=== PATIENT | male | born 1955 | race Caucasian/White ===

== ENCOUNTER 2019-04-30 18:34 | Emergency (ER) | payer OTHER ==
[~2019-04-30] VITALS: Ht 177.8 cm; Wt 99.8 kg
--- OUTSIDE RECORDS SUMMARY | ~2019-04-30 | XMS | Encounter Summary ---
Demographics + + + | Address | [address] | | | [place] [address] | + + + | Home Phone | | + + + | Preferred Language | Unknown | + + + | Marital Status | | + + + | Anabaptist Affiliation | Unknown | + + + | Race | Unknown | + + + | Ethnic Group | Unknown | + + + Author + + + | Author | [facility] | | | and [place] | + + + | Organization | [facility] | | | and [place] | + + + | Address | Unknown | + + + | Phone | Unavailable | + + + Support + + +---------+ + | Name | Relationship | Address | Phone | + + +---------+ + | Sarah Curtis | ECON | Unknown | | + + +---------+ + Care Team Providers + +------+ + | Care Hvac R Tech Name | Role | Phone | + +------+ + | No, Physician | PCP | Unavailable | + +------+ + Reason for Visit + + + | Reason | Comments | + + + | Left Without Being | | | Seen | | + + + Encounter Details +--------+ + + + + | Date | Type | Department | Care Team | Description | +--------+ + + + + | 04/16/ | Clinical | [facility] | Jayesh Raygoza | Patient left without | | 2019 | Support | [facility]ARE [address] | B, DO [address] | being seen (Primary | | | | [place], [place] | [place] | Dx) | | | | [address] | [address] | | | | | [phone] | | | +--------+ + + + + Social History + + + +--------+------+ | Tobacco Use | Types | Packs/Day | Years | Date | | | | | Used | | + + + +--------+------+ | Current Every Day | Cigarettes | 0.5 | | | | Smoker | | | | | + + + +--------+------+ + + +---------+ + | Alcohol Use | Drinks/We | oz/Week | Comments | | | ek | | | + + +---------+ + | Never | | | | + + +---------+ + + + + + | Alcohol Habits | Answer | Date Recorded | + + + + | How often do you have a drink containing | Never | 04/16/2019 | | alcohol? | | | + + + + | How many drinks containing alcohol do you | Not asked | | | have on a typical day when you are | | | | drinking? | | | + + + + | How often do you have six or more drinks on | Not asked | | | one occasion? | | | + + + + + + + | Sex Assigned at | Date Recorded | | | | + + + | Not on file | | + + + + + + + | Job Start Date | Occupation | Industry | + + + + | Not on file | Not on file | Not on file | + + + + + + + + | Travel History | Travel Start | Travel End | + + + + + + | No recent travel history available. 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 Emilia Beverly documen celestino in this encounter Plan of Treatment Not on filedocumented as of this encounter Visit Diagnoses + + | Diagnosis | + + | Patient left without being seen - Primary Surgical or other procedure not carried out | | because of patient's decision | + + documented in this encounter"
--- OUTSIDE RECORDS SUMMARY | ~2019-04-30 | XMS | Encounter Summary ---
Demographics + + + | Address | [address] | | | [place] [address] | + + + | Home Phone | | + + + | Preferred Language | Unknown | + + + | Marital Status | | + + + | Confucianist Affiliation | Unknown | + + + | Race | Unknown | + + + | Ethnic Group | Unknown | + + + Author + + + | Author | [facility] | | | and [place] | + + + | Organization | [facility] | | | and [place] | [...] Team Providers + +------+ + | Care Canal Equipment Maintenance Supervisor Name | Role | Phone | + +------+ + | No, Physician | PCP | Unavailable | + +------+ + Reason for Referral Evaluate & Treat (Routine) + + + + + + + | Status | Reason | Specialty | Diagnoses / | Referred By | Referred To | | | | | Procedures | Contact | Contact | + + + + + + + | Pending | Specialty | Surgery | Diagnoses | Tommie, | Dutch, | | Review | Services | | Biliary | Dyllan Mcclellan MD | Nickolas Winters MD | | | Required | | colic | [address] | | | | | Calculus of | [address] | [place] | | | | | gallbladder | [place], | [place] | | | | | without | [place] [address] | [address] | | | | | cholecystiti | Phone: | Phone: | | | | | s without | [phone] | [phone] | | | | | obstruction | Fax: | Fax: | | | | | Procedures | [phone] | [phone] | | | | | 04/18>PEND | | | | | | | [place] | | | + + + + + + + Reason for Visit + + + | Reason | Comments | + + + | Abdominal Pain | | + + + Encounter Details +--------+ + + + + | Date | Type | Department | Care Team | Description | +--------+ + + + + | 04/16/ | Emergency | [facility] | Dyllan Reilly MD | Biliary colic | | 2019 | | [facility] | [address] | (Primary Dx); | | | | CENTER [address] | [place], [place] | Calculus of | | | | [place], [place] | [address] | gallbladder without | | | | [address] | | cholecystitis | | | | [phone] | | without obstruction | +--------+ + + + + Social [...] + + documented as of this encounter Last Filed Vital Signs + + + + | Vital Sign | Reading | Time Taken | + + + + | Blood Pressure | 121/79 | 04/16/20191339 PDT | + + + + | Pulse | 82 | 04/16/20191339 PDT | + + + + | Temperature | 37.1 C (98.7 F) | 04/16/20191339 PDT | + + + + | Respiratory Rate | 16 | 04/16/20191339 PDT | + + + + | Oxygen Saturation | 95% | 04/16/20191339 PDT | + + + + | Inhaled Oxygen | - | - | | Concentration | | | + + + + | Weight | 98.2 kg (216 lb 7.9 | 04/16/20191339 PDT | | | oz) | | + + + + | Height | 177.8 cm (5' 10") | 04/16/20190 PDT | + + + + | Body Mass Index | 31.06 | 04/16/2019 1340 PDT | + + + + documented in this encounter Discharge Instructions Instructions Dyllan Reilly MD - 04/16/2019Mamohamud use pain and nausea medication as needed Rest and plenty of fluids Return for uncontrolled pain, high fever, uncontrolled vomiting, other new complaints documented in this encounter Medications at Time of Discharge + + + +---------+ + + | Medication | Sig | Dispensed | Refills | Start | End Date | | | | | | Date | | + + + +---------+ + + | ATORVASTATIN | Take by mouth. | | 0 | | | | CALCIUM PO | | | | | | + + + +---------+ + + | | Take 1-2 tablets by | 12 | 0 | 04/16/20 | | | HYDROcodone-acetamin | mouth every 6 hours | tablet | | 19 | | | ophen (NORCO) 5-325 | as needed for Pain. | | | | | | mg per tablet | | | | | | + + + +---------+ + + | Levothyroxine | Take by mouth. | | 0 | | | | Sodium (SYNTHROID | | | | | | | PO) | | | | | | + + + +---------+ + + | METOPROLOL | Take by mouth. | | 0 | | | | TARTRATE PO | | | | | | + + + +---------+ + + | ondansetron | Take 1 tablet by | 10 | 0 | 04/16/20 | | | (ZOFRAN ODT) 4 mg | mouth every 8 hours | tablet | | 19 | | | disintegrating | as needed for | | | | | | tablet | Nausea. | | | | | + + + +---------+ + + | sertraline | Take 100 mg by mouth | | 0 | | | | (ZOLOFT) 100 mg | Daily. | | | | | | tablet | | | | | | + + + +---------+ + + documented as of this encounter Plan of Treatment + +--------+ + + | Name | Priori | Associated Diagnoses | Order Schedule | | | ty | | | + +--------+ + + | [facility] - | Routin | Biliary colic | Ordered: 04/16/2019 | | [place] | e | Calculus of | | | | | gallbladder without | | | | | cholecystitis | | | | | without obstruction | | + +--------+ + + documented as of this encounter Procedures + +--------+ + + + | Procedure Name | Priori | Date/Time | Associated Diagnosis | Comments | | | ty | | | | + +--------+ + + + | US ABDOMEN LIMITED | STAT | 04/16/2019 | | Results for this | | | | 16:27 PDT | | procedure are in the | | | | | | results section. | + +--------+ + + + | CBC W/AUTO | STAT | 04/16/2019 | | Results for this | | DIFFERENTIAL | | 14:15 PDT | | procedure are in the | | | | | | results section. | + +--------+ + + + | EXTRA LAVENDER TOP | Routin | 04/16/2019 | | Results for this | | TUBE | e | 14:15 PDT | | procedure are in the | | | | | | results section. | + +--------+ + + + | EXTRA GREEN TOP TUBE | Routin | 04/16/2019 | | Results for this | | | e | 14:15 PDT | | procedure are in the | | | | | | results section. | + +--------+ + + + | EXTRA BLUE TOP TUBE | Routin | 04/16/2019 | | Results for this | | | e | 14:15 PDT | | procedure are in the | | | | | | results section. | + +--------+ + + + | LIPASE | STAT | 04/16/2019 | | Results for this | | | | 14:15 PDT | | procedure are in the | | | | | | results section. | + +--------+ + + + | COMPREHENSIVE | STAT | 04/16/2019 | | Results for this | | METABOLIC PANEL | | 14:15 PDT | | procedure are in the | | | | | | results section. | + +--------+ + + + documented in this encounter Results US Abdomen Limited (04/16/2019 16:27 PDT) + + | Specimen | + + | | + + + + + | Narrative | Performed At | + + + | US ABDOMEN LIMITED 04/16/2019 4:00 PM HISTORY: Gallbladder. | [facility] | | COMPARISON: None. PROTOCOL: Allen scale and Doppler images of the | | | abdomen. FINDINGS: Gallbladder: Multiple calcified gallstones are | | | seen in the dependent lumen and neck of the gallbladder. There is | | | diffuse gallbladder wall thickening and pericholecystic fluid. | | | Gallbladder wall measures up to 6.5 mm in thickness. The common bile | | | duct measures 5 mm, normal. Liver: Hepatomegaly with diffusely | | | increased hepatic echogenicity compatible with steatosis. No | | | suspicious hepatic mass identified. Pancreas: Visualized | | | parenchyma is within normal limits. The pancreatic duct is normal. | | | Right kidney: The visualized portions appear normal. 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 Venous structures: There is | | | normal blood flow in the IVC, portal veins, and hepatic veins. | | | IMPRESSION - Findings are suspicious for cholecystitis. 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 Further characterization with | | | multiphase renal protocol MRI it is recommended or at least | | | follow-up/surveillance repeat ultrasound to confirm stability. | | | Dictated and Signed by: Que Art MD Electronically signed: | | | 04/16/2019 7:06 PM | | + + + + + | Procedure Note | + + | Sanju, Rad Results In - 04/16/2019 1909 PDT US ABDOMEN LIMITED 04/16/2019 4:00 PM | | | | HISTORY: Gallbladder. | | | | COMPARISON: None. | | | | PROTOCOL: Allen scale and Doppler images of the abdomen. | | | | FINDINGS: | | Gallbladder: Multiple calcified gallstones are seen in the dependent lumen and | | neck of the gallbladder. There is diffuse gallbladder wall thickening and | | pericholecystic fluid. Gallbladder wall measures up to 6.5 mm in thickness. | | The common bile duct measures 5 mm, normal. | | | | Liver: Hepatomegaly with diffusely increased hepatic echogenicity compatible | | with steatosis. No suspicious hepatic mass identified. | | | | Pancreas: Visualized parenchyma is within normal limits. The pancreatic duct is | | normal. | | | | Right kidney: The visualized portions appear normal. Echogenic 1.1 cm mass is | | noted in the midportion of the right kidney, this most likely represents a | | benign renal angiomyolipoma without etiology is unable to be in entirely | | excluded. | | | | Venous structures: There is normal blood flow in the IVC, portal veins, and | | hepatic veins. | | | | IMPRESSION - | | Findings are suspicious for cholecystitis. 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 Further characterization with multiphase renal protocol | | MRI it is recommended or at least follow-up/surveillance repeat ultrasound to | | confirm stability. | | | | Dictated and Signed by: Que Art MD | | Electronically signed: 04/16/2019 7:06 PM | + + + +---------+ + + | Performing | Address | City/State/Zipcode | Phone Number | | Organization | | | | + +---------+ + + | [facility] | | | | + +---------+ + + Extra Green Top Tube (04/16/2019 14:15 PDT) + +-------+ + + + | Component | Value | Ref Range | Performed | Pathologist | | | | | At | Signature | + +-------+ + + + | Extra Green | Done | | [facility] | | | Top Tube | | | [facility] | | | | | | [facility] | | | | | | [facility] - | | | | | | LABORATORY | | + +-------+ + + + + + | Specimen | + + | Blood | + + + + + + + | Performing | Address | City/State/Zipcode | Phone Number | | Organization | | | | + + + + + | [facility] | [address] | [place] | [phone] | | [facility] | | [address] | | | - LABORATORY | | | | + + + + + Extra Blue Top Tube (04/16/2019 14:15 PDT) + +-------+ + + + | Component | Value | Ref Range | Performed | Pathologist | | | | | At | Signature | + +-------+ + + + | Extra Blue | Done | | [facility] | | | Top Tube | | | [facility] | | | | | | [facility] | | | | | | CENTER - | | | | | | LABORATORY | | + +-------+ + + + + + | Specimen | + + | Blood | + + + + + + + | Performing | Address | City/State/Zipcode | Phone Number | | Organization | | | | + + + + + | [facility] | [address] | [place] | [phone] | | [facility] | | [address] | | | - LABORATORY | | | | + + + + + Extra Lavender Top Tube (04/16/2019 14:15 PDT) + +-------+ + + + | Component | Value | Ref Range | Performed | Pathologist | | | | | At | Signature | + +-------+ + + + | Extra | Done | | [facility] | | | Lavender | | | [facility] | | | Top Tube | | | MEDICAL | | | | | | CENTER - | | | | | | LABORATORY | | + +-------+ + + + + + | Specimen | + + | Blood | + + + + + + + | Performing | Address | City/State/Zipcode | Phone Number | | Organization | | | | + + + + + | [facility] | [address] | [place] | [phone] | | [facility] | | [address] | | | - LABORATORY | | | | + + + + + Lipase (04/16/2019 14:15 PDT) + +-------+ + + + | Component | Value | Ref Range | Performed | Pathologist | | | | | At | Signature | + +-------+ + + + | Lipase | 35 | 12 - 53 U/L | [facility] | | | | | | [facility] | | | | | | MEDICAL | | | | | | CENTER - | | | | | | LABORATORY | | + +-------+ + + + + + | Specimen | + + | Blood | + + + + + + + | Performing | Address | City/State/Zipcode | Phone Number | | Organization | | | | + + + + + | [facility] | [address] | [place] | [phone] | | [facility] | | [address] | | | - LABORATORY | | | | + + + + + Comprehensive Metabolic Panel (04/16/2019 14:15 PDT) + + + + + + | Component | Value | Ref Range | Performed | Pathologist | | | | | At | Signature | + + + + + + | Na | 137 | 136 - 145 | [facility] | | | | | mmol/L | [facility] | | | | | | MEDICAL | | | | | | CENTER - | | | | | | LABORATORY | | + + + + + + | K | 3.6 | 3.4 - 5.1 | [facility] | | | | | mmol/L | [facility] | | | | | | MEDICAL | | | | | | CENTER - | | | | | | LABORATORY | | + + + + + + | Cl | 106 | 98 - 107 mmol/L | [facility] | | | | | | [facility] | | | | | | MEDICAL | | | | | | CENTER - | | | | | | LABORATORY | | + + + + + + | CO2 | 26 | 20 - 31 mmol/L | [facility] | | | | | | [facility] | | | | | | MEDICAL | | | | | | CENTER - | | | | | | LABORATORY | | + + + + + + | Anion Gap | 5 | 3 - 16 mmol/L | [facility] | | | | | | [facility] | | | | | | MEDICAL | | | | | | CENTER - | | | | | | LABORATORY | | + + + + + + | Glucose | 104 | 60 - 106 mg/dL | [facility] | | | | | | [facility] | | [facility] | | | MEDICAL | | | | | | CENTER - | | | | | | LABORATORY | | + + + + + + | BUN | 10 | 9 - 23 mg/dL | [facility] | | | | | | [facility] | | | | | | MEDICAL | | | | | | CENTER - | | | | | | LABORATORY | | + + + + + + | Creatinine | 0.81 | 0.70 - 1.30 | [facility] | | | | | mg/dL | [facility] | | | | | | MEDICAL | | | | | | CENTER - | | | | | | LABORATORY | | + + + + + + | eGFR if not | >60Comment: GLOMERULAR | >=60 | [facility] | | | | FILTRATION | mL/min/1.73m2 | [facility] | | | VENEZUELAN | RATE,ESTIMATED mL/min | | MEDICAL | | | | /1.44v3Ywze than 60 | | CENTER - | | | | Chronic kidney | | LABORATORY | | | | disease,if found over a | | | | | | 3-month period.Less than | | | | | | 15 Kidney | | | | | | failureFor | | | | | | Americans,multiply the | | | | | | calculated GFR by 1.21. | | | | | | | | | | + + + + + + | Ca | 9.3 | 8.7 - 10.4 | [facility] | | | | | mg/dL | [facility] | | | | | | MEDICAL | | | | | | CENTER - | | | | | | LABORATORY | | + + + + + + | Albumin | 4.6 | 3.2 - 4.8 g/dL | [facility] | | | | | | [facility] | | | | | | MEDICAL | | | | | | CENTER - | | | | | | LABORATORY | | + + + + + + | Bilirubin | 1.2 | 0.3 - 1.2 mg/dL | [facility] | | | Total | | | [facility] | | | | | | MEDICAL | | | | | | CENTER - | | | | | | LABORATORY | | + + + + + + | Total | 7.8 | 5.7 - 8.2 g/dL | [facility] | | | Protein | | | [facility] | | | | | | MEDICAL | | | | | | CENTER - | | | | | | LABORATORY | | + + + + + + | AST | 19 | 0 - 34 U/L | [facility] | | | | | | [facility] | | | | | | MEDICAL | | | | | | CENTER - | | | | | | LABORATORY | | + + + + + + | ALT | 22 | 10 - 49 U/L | [facility] | | | | | | [facility] | | | | | | MEDICAL | | | | | | CENTER - | | | | | | LABORATORY | | + + + + + + | Alkaline | 69 | 46 - 116 U/L | [facility] | | | Phosphatase | | | [facility] | | | | | | MEDICAL | | | | | | CENTER - | | | | | | LABORATORY | | + + + + + + | Globulin | 3.2 | 2.1 - 3.8 g/dL | [facility] | | | | | | [facility] | | [facility] | | | MEDICAL | | | | | | CENTER - | | | | | | LABORATORY | | + + + + + + | Albumin/Adela | 1.4 | 0.8 - 1.9 | [facility] | | | bulin Ratio | | | [facility] | | | | | | MEDICAL | | | | | | CENTER - | | | | | | LABORATORY | | + + + + + + | BUN/Creatin | 12.3 | | [facility] | | | ine Ratio | | | [facility] | | | | | | MEDICAL | | | | | | CENTER - | | | | | | LABORATORY | | + + + + + + + + | Specimen | + + | Blood | + + + + + + + | Performing | Address | City/State/Zipcode | Phone Number | | Organization | | | | + + + + + | [facility] | [address] | [place] | [phone] | | [facility] | | [address] | | | - LABORATORY | | | | + + + + + CBC w/ Auto Differential (04/16/2019 14:15 PDT) + +-------+ + + + | Component | Value | Ref Range | Performed | Pathologist | | | | | At | Signature | + +-------+ + + + | WBC | 9.2 | 4.0 - 11.0 K/uL | [facility] | | | | | | [facility] | | | | | | MEDICAL | | | | | | CENTER - | | | | | | LABORATORY | | + +-------+ + + + | RBC | 4.80 | 4.30 - 5.70 | [facility] | | | | | M/uL | [facility] | | | | | | MEDICAL | | | | | | CENTER - | | | | | | LABORATORY | | + +-------+ + + + | Hemoglobin | 14.3 | 13.5 - 18.0 | [facility] | | | | | g/dL | [facility] | | | | | | MEDICAL | | | | | | CENTER - | | | | | | LABORATORY | | + +-------+ + + + | Hematocrit | 42.9 | 40.0 - 51.0 % | [facility] | | | | | | [facility] | | | | | | MEDICAL | | | | | | CENTER - | | | | | | LABORATORY | | + +-------+ + + + | MCV | 89.4 | 83.0 - 101.0 fL | [facility] | | | | | | [facility] | | | | | | MEDICAL | | | | | | CENTER - | | | | | | LABORATORY | | + +-------+ + + + | MCH | 29.8 | 28.0 - 35.0 pg | [facility] | | | | | | [facility] | | | | | | MEDICAL | | | | | | CENTER - | | | | | | LABORATORY | | + +-------+ + + + | MCHC | 33.3 | 32.0 - 36.0 | [facility] | | | | | g/dL | [facility] | | | | | | MEDICAL | | | | | | CENTER - | | | | | | LABORATORY | | + +-------+ + + + | RDW-CV | 13.7 | <15.0 % | [facility] | | | | | | [facility] | | | | | | MEDICAL | | | | | | CENTER - | | | | | | LABORATORY | | + +-------+ + + + | RDW-SD | 44.6 | 35.1 - 46.3 fL | [facility] | | | | | | [facility] | | | | | | MEDICAL | | | | | | CENTER - | | | | | | LABORATORY | | + +-------+ + + + | Platelet | 246 | 140 - 440 K/uL | [facility] | | | Count | | | [facility] | | | | | | MEDICAL | | | | | | CENTER - | | | | | | LABORATORY | | + +-------+ + + + | MPV | 10.3 | 6.5 - 12.4 fL | [facility] | | | | | | [facility] | | | | | | MEDICAL | | | | | | CENTER - | | | | | | LABORATORY | | + +-------+ + + + | % | 61.6 | 45.0 - 82.0 % | [facility] | | | Neutrophils | | | [facility] | | | | | | MEDICAL | | | | | | CENTER - | | | | | | LABORATORY | | + +-------+ + + + | % | 27.1 | 20.0 - 45.0 % | [facility] | | | Lymphocytes | | | [facility] | | | | | | MEDICAL | | | | | | CENTER - | | | | | | LABORATORY | | + +-------+ + + + | % Monocytes | 9.5 | 4.0 - 12.0 % | [facility] | | | | | | [facility] | | | | | | MEDICAL | | | | | | CENTER - | | | | | | LABORATORY | | + +-------+ + + + | % | 1.0 | 0.0 - 5.0 % | [facility] | | | Eosinophils | | | [facility] | | | | | | MEDICAL | | | | | | CENTER - | | | | | | LABORATORY | | + +-------+ + + + | % Basophils | 0.7 | 0.0 - 1.0 % | [facility] | | | | | | [facility] | | | | | | MEDICAL | | | | | | CENTER - | | | | | | LABORATORY | | + +-------+ + + + | % Immature | 0.1 | 0.0 - 0.4 % | [facility] | | | Granulocyte | | | [facility] | | | s | | | MEDICAL | | | | | | CENTER - | | | | | | LABORATORY | | + +-------+ + + + | Absolute | 5.66 | 1.80 - 8.50 | [facility] | | | Neutrophils | | K/uL | [facility] | [facility] | [facility] | | | | | | C[facility] - | | | | | | LABORATORY | | + +-------+ + + + | Absolute | 2.49 | 0.60 - 3.20 | [facility] | | | Lymphocytes | | K/uL | [facility] | | | | | | MEDICAL | | | | | | CENTER - | | | | | | LABORATORY | | + +-------+ + + + | Absolute | 0.87 | 0.00 - 1.00 | [facility] | | | Monocytes | | K/uL | [facility] | | | | | | MEDICAL | | | | | | CENTER - | | | | | | LABORATORY | | + +-------+ + + + | Absolute | 0.09 | 0.00 - 0.40 | [facility] | | | Eosinophils | | K/uL | [facility] | | | | | | MEDICAL | | | | | | CENTER - | | | | | | LABORATORY | | + +-------+ + + + | Absolute | 0.06 | 0.00 - 0.10 | [facility] | | | Basophils | | K/uL | [facility] | | | | | | MEDICAL | | | | | | CENTER - | | | | | | LABORATORY | | + +-------+ + + + | Absolute | 0.01 | 0.00 - 0.03 | [facility] | | | Immature | | K/uL | [facility] | | | Granulocyte | | | MEDICAL | | | s | | | CENTER - | | | | | | LABORATORY | | + +-------+ + + + | % nRBC | 0 | 0 - 2 per 100 | [facility] | | | | | WBCs | [facility] | | | | | | MEDICAL | | | | | | CENTER - | | | | | | LABORATORY | | + +-------+ + + + | Absolute | 0.00 | 0.00 - 0.01 | [facility] | | | nRBC | | K/uL | [facility] | | | | | | MEDICAL | | | | | | CENTER - | | | | | | LABORATORY | | + +-------+ + + + + + | Specimen | + + | Blood | + + + + + + + | Performing | Address | City/State/Zipcode | Phone Number | | Organization | | | | + + + + + | [facility] | [address] | [place] | [phone] | | [facility] | | [address] | | | - LABORATORY | | | | + + + + + documented in this encounter Visit Diagnoses + + | Diagnosis | + + | Biliary colic - Primary Calculus of gallbladder without mention of cholecystitis or | | obstruction | + + | Calculus of gallbladder without cholecystitis without obstruction Calculus of | | gallbladder without mention of cholecystitis or obstruction | + + documented in this encounter
--- OUTSIDE RECORDS SUMMARY | ~2019-04-30 | XMS | Clinical Summary ---
Demographics + + + | Address | [address] | | | [place] [address] | + + + | Home Phone | | + + + | Preferred Language | Unknown | + + + | Marital Status | | + + + | Orthodoxy Affiliation | Unknown | + + + | Race | Unknown | + + + | Ethnic Group | Unknown | + + + Author + + + | Author | [facility] | + + + | Organization | [facility] | + + + | Address | Unknown | + + + | Phone | Unavailable | + + + Support + + + + + | Name | Relationship | Address | Phone | + + + + + | Sarah Curtis | ECON | [address] | | | | | [place] | | | | | [address] | | + + + + + Care Team Providers + +------+ + | Care Grinder Mill Operator Name | Role | Phone | + +------+ + | Magaly Do | PP | | + +------+ + Allergies No Known Allergies Current Medications + + +-------+---------+------+------+-------+ | Prescription | Sig. | Disp. | Refills | Star | End | Statu | | | | | | t | Date | s | | | | | | Date | | | + + +-------+---------+------+------+-------+ | levothyroxine | Take 112 mcg by | | | | | Activ | | (SYNTHROID) 112 MCG | mouth every morning | | | | | e | | tablet | before breakfast. | | | | | | + + +-------+---------+------+------+-------+ | sertraline | Take 100 mg by mouth | | | | | Activ | | (ZOLOFT) 100 MG | daily. | | | | | e | | tablet | | | | | | | + + +-------+---------+------+------+-------+ | nitroGLYCERIN | Place 0.4 mg under | | | | | Activ | | (NITROSTAT) 0.4 MG | the tongue every 5 | | | | | e | | SL tablet | (five) minutes as | | | | | | | | needed for Chest | | | | | | | | pain. | | | | | | + + +-------+---------+------+------+-------+ | atorvastatin | Take 10 mg by mouth | | | | | Activ | | (LIPITOR) 10 MG | nightly. | | | | | e | | tablet | | | | | | | + + +-------+---------+------+------+-------+ | metoprolol | Take 12.5 mg by | | | | | Activ | | (LOPRESSOR) 6.25 MG | mouth 2 (two) times | | | | | e | | partial tablet | daily. | | | | | | + + +-------+---------+------+------+-------+ Active Problems + + + | Problem | Noted Date | + + + | Unspecified hypothyroidism | 05/14/2016 | + + + | Depression | 05/14/2016 | + + + Resolved Problems + + + + | Problem | Noted | Resolved | | | Date | Date | + + + + | Precordial pain | 05/14/20 | | | | 16 | 6 | + + + + Social History + +-------+ +--------+------+ | Tobacco Use | Types | Packs/Day | Years | Date | | | | | Used | | + +-------+ +--------+------+ | Current Every Day | | 0.5 | | | | Smoker | | | | | + +-------+ +--------+------+ + + | Tobacco Cessation: Ready to Quit: Yes; Counseling Given: Yes | + + + + +---------+ + | Alcohol Use | Drinks/We | oz/Week | Comments | | | ek | | | + + +---------+ + | No | | | | + + +---------+ + + + + | Sex Assigned at | Date Recorded | | | | + + + | Not on file | | + + + Last Filed Vital Signs + + + + | Vital Sign | Reading | Time Taken | + + + + | Blood Pressure | 110/75 | 05/15/2016 11:20 AM PDT | + + + + | Pulse | 88 | 05/15/2016 11:20 AM PDT | + + + + | Temperature | 36.6 C (97.8 F) | 05/15/2016 11:20 AM PDT | + + + + | Respiratory Rate | 18 | 05/15/2016 11:20 AM PDT | + + + + | Oxygen Saturation | 94% | 05/15/2016 11:20 AM PDT | + + + + | Inhaled Oxygen | - | - | | Concentration | | | + + + + | Weight | 99.8 kg (220 lb) | 05/14/2016 9:36 PM PDT | + + + + | Height | 177.8 cm (5' 10") | 05/14/2016 9:36 PM PDT | + + + + | Body Mass Index | 31.57 | 05/14/2016 9:36 PM PDT | + + + + Plan of Treatment Not on file Results Not on filefrom Last 3 Months Insurance + +--------+ +------+ + + | Payer | Benefi | Subscriber | Type | Phone | Address | | | t Plan | ID | | | | | | / | | | | | | | Group | | | | | + +--------+ +------+ + + | VETERANS | VETERA | [id number] | | [phone] [employer]EE [employer] [id number] | | ADMINISTRATION | [place] | | | [phone] | | | ADMINI | | | | [address] [place] | | | [place] | | | | [phone] | | | ON | | | | | + +--------+ +------+ + + | PREMERA | PREMER | [id number] | | | [address] [address] | | | A BLUE | | | | [place], [place] | | | [place]OSS | | | | [address] | | | FED | | | | | | | PPO | | | | | + +--------+ +------+ + + + +--------+ +--------+ + + | Guarantor Name | Accoun | Relation to | Date | Phone | Billing Address | | | t Type | Patient | of | | | | | | | | | | + +--------+ +--------+ + + | NAYAN CURTIS | Person | Self | [birth year] | Home: | [address] | | | al/Fam | | 1955 | [phone] | [place] | | | [place] | | | [phone] | [phone] | + +--------+ +--------+ + + | NAYAN CURTIS | Vetera | Self | [birth year] | Home: | [address] | | | ns | | 1955 | [phone] | [place] | | | Admini | | | [phone] | [phone] | | | [place] | | | | | | | on | | | | | + +--------+ +--------+ + +
--- OUTSIDE RECORDS SUMMARY | ~2019-04-30 | XMS | Clinical Summary ---
Demographics + + + | Address | [address] | | | [place] [address] | + + + | Home Phone | | + + + | Preferred Language | Unknown | + + + | Marital Status | | + + + | Anglican Affiliation | Unknown | + + + | Race | Unknown | + + + | Ethnic Group | Unknown | + + + Author + + + | Author | [facility] | | | and [place] | + + + | Organization | [facility] | | | and [...] Team Providers + +------+ + | Care Biostatistics Teacher Name | Role | Phone | + +------+ + | No, Physician | PP | Unavailable | + +------+ + Allergies No Known Allergies Medications + + + +---------+------+------+-------+ | Medication | Sig | Dispensed | Refills | Star | End | Statu | | | | | | t | Date | s | | | | | | Date | | | + + + +---------+------+------+-------+ | sertraline | Take 100 mg by mouth | | 0 | | | Activ | | (ZOLOFT) 100 mg | Daily. | | | | | e | | tablet | | | | | | | + + + +---------+------+------+-------+ | ATORVASTATIN | Take by mouth. | | 0 | | | Activ | | CALCIUM PO | | | | | | e | + + + +---------+------+------+-------+ | METOPROLOL | Take by mouth. | | 0 | | | Activ | | TARTRATE PO | | | | | | e | + + + +---------+------+------+-------+ | Levothyroxine | Take by mouth. | | 0 | | | Activ | | Sodium (SYNTHROID | | | | | | e | | PO) | | | | | | | + + + +---------+------+------+-------+ | | Take 1-2 tablets by | 12 | 0 | 05/2 | | Activ | | HYDROcodone-acetamin | mouth every 6 hours | tablet | | 7/20 | | e | | ophen (NORCO) 5-325 | as needed for Pain. | | | 19 | | | | mg per tablet | | | | | | | + + + +---------+------+------+-------+ | ondansetron | Take 1 tablet by | 10 | 0 | 05/2 | | Activ | | (ZOFRAN ODT) 4 mg | mouth every 8 hours | tablet | | / | | e | | disintegrating | as needed for | | | 19 | | | | tablet | Nausea. | | | | | | + + + +---------+------+------+-------+ Active Problems Not on file Encounters +--------+ + + + + | Date | Type | Specialty | Care Team | Description | +--------+ + + + + | 04/16/ | Emergency | | Dyllan Reilly MD | Biliary colic | | 2019 | | | | (Primary Dx); | | | | | | Calculus of | | | | | | gallbladder without | | | | | | cholecystitis | | | | | | without obstruction | +--------+ + + + + | 04/16/ | Clinical | | TylerbruceJayesh | Patient left without | | 2019 | Support | | B, DO | being seen (Primary | | | | | | Dx) | +--------+ + + + + from Last 3 Months Social History + + + +--------+------+ | [...] recent travel history available. | + + Last Filed Vital Signs + [...] Height | 177.8 cm (5' 10") | 04/16/20191339 PDT | + + + + | Body Mass Index | 31.06 | 04/16/20191339 PDT | + + + + Plan of Treatment + + + + + | Health Maintenance | Due Date | Last Done | Comments | + + + + + | Hepatitis C | | | | | Screening | 5 | | | + + + + + | Vaccine: | | | | | Dtap/Tdap/Td (1 - | 4 | | | | Tdap) | | | | + + + + + | Vaccine: | | | | | Pneumococcal 19-64 | 4 | | | | (PPSV23 only) Medium | | | | | Risk (1 of 1 - | | | | | PPSV23) | | | | + + + + + | Colorectal Cancer | | | | | Screening | 5 | | | | (Colonoscopy) | | | | + + + + + | Vaccine: Zoster (1 | | | | | of 2) | 5 | | | + + + + + | Vaccine: Influenza | | 11/11/2014, 09/16/2012 | | | (Season Ended) | 9 | | | + + + + + Procedures + +--------+ + + + | [...] section. | + +--------+ + + + from Last 3 Months Results US Abdomen Limited (04/16/2019 16:27 PDT) [...] | | | + +---------+ + + CBC w/ Auto Differential (04/16/2019 [...] | | | | M/uL | [facility] | | | | | | MEDICAL | | | | | | CENTER - | | | | | | LABORATORY | | + +-------+ + + + | Hemoglobin | 14.3 | 13.5 - 18.0 | [facility] | | | | | g/dL | [facility] | | | | [...] | | Neutrophils | | K/uL | [facility] | [...] | Immature | | K/uL | [facility] | | | Granulocyte | | | MEDICAL | | | s | | | CENTER - | | | | | | LABORATORY | | + +-------+ + + + | % nRBC | 0 | 0 - 2 per 100 | [facility] | | | | | WBCs | [facility] | | | | | | MEDICAL | | | | | | CENTER - | | | | | | LABORATORY | | + +-------+ + + + | Absolute | 0.00 | 0.00 - 0.01 | [facility] | | | nRBC | | K/uL | [facility] | | [...] + + | [facility] | [address] | [place] | [phone] | | [facility] | | [address] | | | - LABORATORY | | [...] | | | Lavender | | | [facility] | | | Top Tube | [...] + | [facility] | [address] | [place], [place] | [phone] | | [facility] | | [address] | | | - LABORATORY | | | | + + + + + Extra Green Top Tube (04/16/2019 14:15 PDT) + +-------+ + + + | Component | Value | Ref Range | Performed | Pathologist | | | | | At | Signature | + +-------+ + + + | Extra Green | Done | | [facility] | | | Top Tube | | | [facility] | | | | [...] ST. | [address] | [place] | [phone] | | [facility] | | [address] | | | - LABORATORY | | [...] + | [facility] | [address] | [place] | [phone] | | [facility] | | [address] | | | - LABORATORY | | [...] [facility] | | | | | | [facility] | | | | [...] [address] | [place] | [phone] | | [facility] | | [address] | | | - LABORATORY | | [...] 104 | 60 - 106 mg/dL | [facility] | | | | | | [facility] | | | | | | MEDICAL | | | | | | CENTER - | | | | | | LABORATORY | | + + + + + + | BUN | 10 | 9 - 23 mg/dL | [facility] | | | | | | [facility] | | | | | | MEDICAL | | | | | | CENTER - | | | | | | LABORATORY | | + + + + + + | Creatinine | 0.81 | 0.70 - 1.30 | [facility] | | | | | mg/dL | [facility] | | | | | | MEDICAL | | | | | | CENTER - | | | | | | LABORATORY | | + + + + + + | eGFR if not | >60Comment: GLOMERULAR | >=60 | [facility] | | | | FILTRATION | mL/min/1.73m2 | [facility] | | | YEMENI | RATE,ESTIMATED mL/min | | MEDICAL | | | | /1.26c6Hghh than 60 | | CENTER - | [...] 4.6 | 3.2 - 4.8 g/dL | [facility] | | | | | | [facility] | | | | | | MEDICAL | | | | | | CENTER - | | | | | | LABORATORY | | + + + + + + | Bilirubin | 1.2 | 0.3 - 1.2 mg/dL | [facility] | | | Total | | | [...] | [address] | [place] | [phone] | | [facility] | | [address] | | | - LABORATORY | | | | + + + + + from Last 3 Months Insurance + +--------+ +--------+-------+---------+--------+ | Payer | Benefi | Subscriber | Effect | Phone | Address | Type | | | t Plan | ID | marisa | | | | | | / | | Dates | | | | | | Group | | | | | | + +--------+ +--------+-------+---------+--------+ | [employer] ADMIN | VET[place] | [id number] | | | | Indemn | | | [place] | | [id number] | | | ity | | | ADMIN | | esent | | | | | | [place] | | | | | | [place] | | | | | | + +--------+ +--------+-------+---------+--------+ + +--------+ +--------+ + + | Guarantor Name | Accoun | Relation to | Date | Phone | Billing Address | | | t Type | Patient | of | | | | | | | | | | + +--------+ +--------+ + + | Nayan Curtis | Person | Self | [birth year] | [address] | | [address] | | 1955 | [phone] | [place] [address] | | | [place] | | | 8 (Home) | | + +--------+ +--------+ + + Advance Directives Patient has advance care planning documents on file. For more information, please contact:[facility] [address]
--- OUTSIDE RECORDS SUMMARY | ~2019-04-30 | XMS | Clinical Summary ---
Demographics + + + | Address | [address] | | | [place] [address] | + + + | Home Phone | | + + + | Preferred Language | Unknown | + + + | Marital Status | | + + + | Temple Affiliation | Unknown | + + + | Race | Unknown | + + + | Ethnic Group | Unknown | + + + Author + + + | Author | [facility] | | | and [place] | + + + | Organization | [facility] | | | and [place] [...] Team Providers + +------+ + | Care Negative Checker Name | Role | Phone | + [...] [address] | [place] | [phone] | | [facility] | | [address] | | | - LABORATORY | | [...] + | [facility] | [address] | [place], [place] | [phone] | | [facility] | | [address] | | | - LABORATORY | | [...] ST. | [address] | [place] | [phone] | | [facility] | | [address] | | | - LABORATORY | | [...] [address] | [place] | [phone] | | [facility] | | [address] | | | - LABORATORY | | [...] [address] | [place] | [phone] | | [facility] | | [address] | | | - LABORATORY | | [...] | | | | mmol/L | [facility] | | | | | | MEDICAL [...] | 0.81 | 0.70 - 1.30 | [facility] | | | | | mg/dL | [facility] | | | | | | MEDICAL | | | | | | CENTER - | | | | | | LABORATORY | | + + + + + + | eGFR if not | >60Comment: GLOMERULAR | >=60 | [facility] | | | | FILTRATION | mL/min/1.73m2 | [facility] | | | [place] | RATE,ESTIMATED mL/min | | MEDICAL | | | | /1.15r4Vsap than 60 | | CENTER - | [...] [address] | [place] | [phone] | | [facility] | | [address] | | | - LABORATORY | | [...] +--------+-------+---------+--------+ | [employer]MIN | VETERA | [id number] | | | | Indemn | | [...] | | al/[place] | | 1955 | [phone] | [place] [address] | | | [place] | | | 8 (Home) | | + +--------+ +--------+ + + Advance Directives Patient has advance care planning documents on file. For more information, please contact:[facility] [place] [address]
--- OUTSIDE RECORDS SUMMARY | ~2019-04-30 | XMS | Encounter Summary ---
Demographics + + + | Address | [address] | | | [place] [address] | + + + | Home Phone | | + + + | Preferred Language | Unknown | + + + | Marital Status | | + + + | Jainism Affiliation | Unknown | + + + | Race | Unknown | + + + | Ethnic Group | Unknown | + + + Author + + + | Author | [facility] | | | and [place] | + + + | Organization | [facility] | | | and [...] Team Providers + +------+ + | Care Cargo And Container Inspector Name | Role | Phone | + [...] | | | | without | [place] [address] | [address] | | | | | cholecystiti | Phone: | Phone: | | | | | s without | [phone] | [phone] | | | | | obstruction | Fax: | Fax: | | | | | Procedures | [phone] | [phone] | | | | | 04/18>PEND | [...] + + | 04/16/ | Emergency | [facility] | Dyllan Reilly MD | Biliary colic | | 2019 | | [facility] | [address] | (Primary Dx); | | | | CENTER [address] | [place], [place] | Calculus of | | | | [place], [place] | [address] | gallbladder without | | | | [address] | | cholecystitis | | | | [phone] | | without obstruction | +--------+ + [...] + | [facility] | [address] | [place] | [phone] | | [facility] | | [address] | | | - LABORATORY | | [...] [address] | [place] | [phone] | | [facility] | | [address] | | | - LABORATORY | | [...] [address] | [place] | [phone] | | [facility] | | [address] | | | - LABORATORY | | [...] [address] | [place] | [phone] | | [facility] | | [address] | | | - LABORATORY | | [...] mL/min/1.73m2 | [facility] | | | [place] | RATE,ESTIMATED mL/min | | MEDICAL | | | | /1.56i7Mrqa than 60 | | CENTER - | [...] [address] | [place] | [phone] | | [facility] | | [address] | | | - LABORATORY | | [...] [address] | [place] | [phone] | | [facility] | | [address] | | | - LABORATORY | | [...]
--- OUTSIDE RECORDS SUMMARY | ~2019-04-30 | XMS | Encounter Summary ---
Demographics + + + | Address | [address] | | | [place] [address] | + + + | Home Phone | | + + + | Preferred Language | Unknown | + + + | Marital Status | | + + + | Orthodox Affiliation | Unknown | + + + | Race | Unknown | + + + | Ethnic Group | Unknown | + + + Author + + + | Author | [facility] | | | and [place] | + + + | Organization | [facility] | | | and [place] | [...] Team Providers + +------+ + | Care Pacu Nurse Name | Role | Phone | + [...] [place] | Dx) | | | | [address] | [address] | | | | | [phone] | | | +--------+ + + + [...] as of this encounter Progress Rebeca Jiménez Mobile Ui Designer - 04/16/2019 1315 PDTPatient left without being [...]
--- OUTSIDE RECORDS SUMMARY | ~2019-04-30 | XMS | Clinical Summary ---
Demographics + + + | Address | [address] | | | [place] [address] | + + + | Home Phone | | + + + | Preferred Language | Unknown | + + + | Marital Status | | + + + | Shinto Affiliation | Unknown | + + + | Race | Unknown | + + + | Ethnic Group | Unknown | + + + Author + + + | Author | [facility] | + + + | Organization | [facility] | + + + | Address | Unknown | + + + | Phone | Unavailable | + + + Support + + + + + | Name | Relationship | Address | Phone | + + + + + | Sarah Curtis | ECON | [address] | | | | | [place] | | | | | [address] | | + + + + + Care Team Providers + +------+ + | Care Dock Operations Supervisor Name | Role | Phone | [...] + + | [place] | [place] | [id number] | | [phone] | [employer] | | ADMINISTRATION | [place] | | | [phone] | [phone] | | | ADMINI | | | | [address] [place] | | | [place] | | | | [address] | | | ON | | | | | + +--------+ +------+ + + | PREMERA | PREMER | [id number] | | | [address] [address] | | | A BLUE | | | | [place], [place] | | | [place] | | | | [address] | | | FED | | | [...] | [place] | | | [phone] | [address] | + +--------+ +--------+ + + | NAYAN CURTIS | Vetera | Self | [birth year] | Home: | [address] | | | [place] | | 1955 | [phone] | [place] | | | Admini | | | [address] | [address] | | | [place] | | | | | | | on | | | | | + +--------+ +--------+ + +
[~2019-04-30 18:34] MED LIST: ATORVASTATIN CA10 MG PO; METOPROLOL TART25 MG PO; NITROSTAT0.4 MG SL; SYNTHROID112 MCG PO; ZOLOFT100 MG PO
--- OUTSIDE RECORDS SUMMARY | 2019-04-30 18:36 | XMS ---
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 Sarabjit VISIT COUNT (12 MO.) [address] [place] [address] Adwoa Lizarraga [address] [place] [address] TOTAL 2 NOTE: Visits indicate total known visits. ED/UCC VISIT TRACKING (12 MO.) 04/30/2019 18:[address] [facility] TYPE: Emergency COMPLAINT: - R ANKLE INJURY 04/16/2019 13:27 [facility] Adwoa ALVAREZ TYPE: Emergency DIAGNOSES: - Abdominal Pain - Calculus of gallbladder without cholecystitis without obstruction - Calculus of bile duct without cholangitis or cholecystitis without obstruction - gallbladder issues 04/16/2019 13:10 [facility] Urgent Care Jacoby ALVAREZ TYPE: Urgent Care DIAGNOSES: - Procedure and treatment not carried out due to patient leaving prior to being seen by health care provider - Left Without Being Seen INPATIENT VISIT TRACKING (12 MO.) No inpatient visits to display in this time frame [email or web address]
[2019-04-30] MEDS ORDERED: ACETAMINOPHEN-1 EAC1 PO (19:25)
== END 2019-04-30 19:37 | disposition home or self-care (01) ==
LOC: ED 18:34
DX: S93.401A Sprain of unspecified ligament of right ankle, initial encounter (principal); F17.200 Nicotine dependence, unspecified, uncomplicated; Z79.899 Other long term (current) drug therapy; X50.1XXA Overexertion from prolonged static or awkward postures, initial encounter
CPT/HCPCS: 73610; 99283